=== PATIENT | male | born 1965 | race Caucasian/White ===

== ENCOUNTER 2023-02-19 21:23 | Emergency (ER) | payer OTHER, SELFPAY ==
[2023-02-19 21:49] VITALS: BP 135/85; PULSE 70; RESP 18; TEMP 36.6; O2SAT 97; BMI 26.1
--- NOTE | 2023-02-20 00:42 | ED_ITS ---
HPI - Extremity Problem General Chief complaint: Extremity Injury, Upper Stated complaint: Finger lac/Work inj Time Seen by Provider: 02/20/23 00:19 Source: patient Mode of arrival: ambulatory Limitations: no limitations History of Present Illness HPI Narrative: Patient apparently cut his right 5th finger tip by resulted in head or wound was clean patient washed and clean before coming to the ER does not remember his last tetanus shot Related Data Allergies Allergy/AdvReac Type Severity Reaction Status Date / Time No Known Allergies Allergy Verified 02/20/23 00:19 Review of Systems Review of Systems: Yes all other systems are reviewed and are negative [facility] [place] Social History Social History Advance Directives: No Advance Directives Information Provided: Yes Physical Exam Vital Signs: Vital Signs: Last Vital Signs Temp 97.9 F 02/19/23 21:49 Pulse 70 02/19/23 21:49 Resp 18 02/19/23 21:49 BP 135/85 02/19/23 21:49 Pulse Ox 97 02/19/23 21:49 O2 Del Method 02/19/23 21:49 BMI result Body Mass Index 26.1 Extrem: Hand/finger images: 1. 0.5 cm superficial laceration tip of the right 5th finger neurovascular intact Medications Administered Discontinued Medications Generic Name Dose Route Start Last Admin Trade Name Freq PRN Reason Stop Dose Admin Diphtheria/Tetanus/Acell Pertussis 0.5 ml 02/20/23 00:19 02/20/23 00:48 Diphth,Pertus(Acell),Tet Adult 0.5 Ml Syringe IM 02/20/23 00:20 Not Given .ONCE ONE Procedures Laceration Laceration 1: Site: hand (Right 5th finger) Side (If applicable): right Description: linear Depth: simple, single layer Skin layer closed with: other (Dermabond) Size (cm): other Discharge Plan Discharge Clinical Impression: Laceration of right little finger Patient Disposition: Home, Self-Care Instructions: Finger Laceration (ED) Additional Instructions: Local care as advised Interventions: ED Discharge Assessment Last Done: 02/20/23 00:56 Discharge Date/Time: 02/20/23 00:58
--- NOTE | 2023-02-20 00:55 | PC.NURSE ---
Pt left prior to receiving tetanus vaccine. Pt informed registration prior to leaving that he did not want to wait any longer.
== END 2023-02-20 00:58 | disposition home or self-care (01) ==
PROVIDERS: Emergency Provider Internal Medicine
DX: S61.216A Laceration without foreign body of right little finger without damage to nail, initial encounter (principal); W45.8XXA Other foreign body or object entering through skin, initial encounter; Y93.9 Activity, unspecified; Y92.9 Unspecified place or not applicable; Y99.0 Civilian activity done for income or pay
CPT/HCPCS: 12001; 99282; 99283